=== PATIENT | female | born 1960 | race Caucasian/White ===

== ENCOUNTER 2019-01-01 08:20 | Outpatient (CLI) ==
--- NOTE | 2019-01-01 09:56 | US ---
EXAM: Trans vaginal pelvic ultrasound. History: Bloody vaginal discharge. Technique: Multiple sonographic images through the pelvis were obtained. Color duplex Doppler was u sed to interrogate vascular flow. Findings: The uterus measures 6.4 cm x 3.4 cm x 3.5 cm and demonstrates heterogeneous echotexture. Endometrium measures 0.4 cm in thickness. There is fluid within the endometrial canal. 2 cm complex mass withi n the cervix. No free fluid in the cul-de-sac. Neither ovary was seen. No adnexal masses. Impression: Complex cervical mass could be malignant. DATA COMMUNICATIONS ANALYST consult recommended. There is fluid w ithin the endometrial canal which could indicate underlying cervical stenosis
== END 2019-01-01 08:21 | disposition home or self-care (01) ==
LOC: RAD 08:20 → EEVIPCON 08:30
PROVIDERS: ATTEND Family Medicine
DX: N89.8 Other specified noninflammatory disorders of vagina (principal)